=== PATIENT | female | born 1940 | race American Indian/Alaskan Native ===

== ENCOUNTER 2019-08-24 18:49 | Emergency (ER) | payer MEDICARE ==
--- NOTE | 2019-08-24 19:15 | Emergency Department Report ---
ED CPR HPI - General Stated Complaint: CARDIAC ARREST Time Seen by Provider: 08/24/19 19:11 Source: EMS - History of Present Illness Initial Comments: 79-year-old female, history of hypertension, presents to ED in cardiac arrest. Patient was at home with her daughter and complained of feeling dizzy. Patient then collapsed to the floor and vomited. Upon EMS arrival patient was alert and complained of chest pain. EMS gave the patient Zofran, aspirin, sublingual nitroglycerin x2. After the nitroglycerin, EMS reports patient became bradycardic. They attempted to pace. Patient then became unresponsive and pulseless. ACLS was initiated. Epi given x1. Patient was then found to be in V. fib, so she was defibrillated. Patient received another epinephrine from EMS. EMS reports brief return of pulses, just prior to ED arrival. She then had seizure-like activity and lost pulses again. Patient arrives in cardiac arrest. Patient in EMS care for approximately 15 minutes. MD Complaint: stopped breathing -: minute(s) (15) Place: home Number of Shocks Delivered: 1 Initial Findings in the Field: alert, good pulses ROSC in the Field: Yes (briefly) Associated Symptoms: chest pain Treatments Prior to Arrival: other airway device (LMA), chest compressions, defribrillated shocks # (1), epinephrine mgs # (1), atropine mgs # (1) ED Review of Systems ROS: Stated complaint: CARDIAC ARREST Other details as noted in HPI Comment: Unobtainable due to pts medical conditions ED Physical Exam - Head Head exam: Present: atraumatic, normocephalic - Eye Pupils: Present: other (fixed) - ENT ENT exam: Present: other (LMA in place, some blood in the mouth) - Neck Neck exam: Present: normal inspection - Respiratory Respiratory exam: Present: rales - Cardiovascular Cardiovascular Exam: Present: other (pulseless) - GI/Abdominal GI/Abdominal exam: Present: distended - Extremities Exam Extremities exam: Present: normal inspection - Neurological Exam Neurological exam: Present: other (GCS=3) - Skin Skin exam: Present: warm, dry, intact, normal color ED Medical Decision Making - Medical Decision Making 79-year-old female presents in cardiac arrest. Initial rhythm in the ED in asystole. ACLS was continued. Please see nurse's note for details. Unfortunately patient . Time of was called at 19:03. Family notified. - Differential Diagnosis arrythmia, ACS, PE, aortic dissection Critical Care Time: Yes Critical care time in (mins) excluding proc time.: 35 Critical care attestation.: If time is entered above; I have spent that time in minutes in the direct care of this critically ill patient, excluding procedure time. Critical Care Time: 35 ED Disposition Clinical Impression: Cardiac arrest Disposition: DC-20 Is pt being admited?: No Condition: Stable Referrals: ALEKSANDR MADERA MD [Primary Care Provider] - 3-5 Days
== END 2019-08-24 23:09 ==
LOC: ED 18:49
DX: I46.9 Cardiac arrest, cause unspecified (principal)